=== PATIENT | male | born 1960 | race Caucasian/White ===

== ENCOUNTER 2017-06-23 13:34 | Emergency (ER) | payer BC ==
[2017-06-23] MEDS ORDERED: KETOROLAC 30 MG/ML 1 ML VIAL IVP STA (14:13)
[2017-06-23] MEDS ORDERED: RX INFO: IV CONTRAST WAS GIVEN 1 EACH MISC MISCELLANE PRN (14:13)
[2017-06-23] MEDS ORDERED: diphenhydrAMINE 50 MG/ML 1 ML VIAL IVP STA (14:13)
[2017-06-23] MEDS ORDERED: SODIUM CHLORIDE 0.9% 1,000 ML IV STA (14:13)
[2017-06-23] MEDS ORDERED: METOCLOPRAMIDE 5 MG/ML 2 ML VIAL IVP STA (14:13)
--- NOTE | 2017-06-23 14:28 | ED ---
Headache HPI - General Chief Complaint: Headache Stated Complaint: Headache Time Seen by Provider: 06/23/17 13:52 Source: RN notes reviewed, old records reviewed Mode of arrival: ambulatory Limitations: no limitations - History of Present Illness Initial Comments: 57-year-old male presents emergency Department with 3 days of a migraine-like headache. He reports no history of migraines or major headaches. He's been taking Motrin and Tylenol with no relief. Patient reports he went to his primary care doctor and encouraged him come directly here. He reports he has nausea but no specific vomiting. Denies any specific agent changes. He reports that his head feels very cloudy. He has a hard time thinking straight. He reports he feels agitated and is having a hard time sleeping. Patient reports he has history of high blood pressure. He does take his medication regularly. He denies any history of cancers. - Related Data Home Medications Medication Instructions Recorded Confirmed Lisinopril [Zestril] 10 mg PO DAILY 06/23/17 06/23/17 Previous Rx's Medication Instructions Recorded Butalb/APAP/Caff 50-325-40Mg 1 tab PO Q4H PRN #12 tablet 06/23/17 [Fioricet 50-325-40] Ondansetron Odt [Zofran Odt] 4 mg PO Q8HR PRN #12 tab 06/23/17 Allergies Allergy/AdvReac Type Severity Reaction Status Date / Time Fish Containing Products Allergy Unknown Verified 06/23/17 14:04 [Fish] Review of Systems ROS Statement: Those systems with pertinent positive or pertinent negative responses have been documented in the HPI. ROS Other: All systems not noted in ROS Statement are negative. Past Medical History Past Medical History: Hypertension History of Any Multi-Drug Resistant Organisms: None Reported Past Surgical History: Orthopedic Surgery Past Psychological History: No Psychological Hx Reported Smoking Status: Never smoker Past Alcohol Use History: Occasional Past Drug Use History: None Reported General Exam - General Exam Comments Initial Comments: This is an alert and oriented 57 year old male, no distress. Limitations: no limitations General appearance: alert, in no apparent distress Head exam: Present: atraumatic, normocephalic, normal inspection Eye exam: Present: normal appearance, PERRL, EOMI. Absent: scleral icterus, conjunctival injection, periorbital swelling ENT exam: Present: normal exam, mucous membranes moist Neck exam: Present: normal inspection. Absent: tenderness, meningismus, lymphadenopathy Respiratory exam: Present: normal lung sounds bilaterally. Absent: respiratory distress, wheezes, rales, rhonchi, stridor Cardiovascular Exam: Present: regular rate, normal rhythm, normal heart sounds. Absent: systolic murmur, diastolic murmur, rubs, gallop, clicks Extremities exam: Present: normal inspection, full ROM, normal capillary refill. Absent: tenderness, pedal edema, joint swelling, calf tenderness Back exam: Present: normal inspection Neurological exam: Present: alert, oriented X3, CN II-XII intact Expanded Patient oriented to: Present: person, place, time Speech: Present: fluid speech Cranial nerves: EOM's Intact: Normal, Facial Sensation: Normal Cerebellar function: Finger to Nose: Normal Upper motor neuron: Pronator Drift: Normal Sensory exam: Upper Extremity Light Touch: Normal, Lower Extremity Light Touch: Normal Motor strength exam: RUE: 5, LUE: 5, RLE: 5, LLE: 5 Eye Response: (4) open spontaneously Motor Response: (6) obeys commands Verbal Response: (5) oriented Roly Total: 15 Psychiatric exam: Present: normal affect, normal mood Skin exam: Present: warm, dry, intact, normal color. Absent: rash Course Vital Signs 06/23/17 06/23/17 13:34 17:45 Temperature 97.4 F L 97.5 F L Pulse Rate 65 60 Respiratory 15 18 Rate Blood Pressure 159/94 124/72 O2 Sat by Pulse 98 98 Oximetry - Reevaluation(s) Reevaluation #1: 06/23/17 16:51 57-year-old was reevaluated reports that his migraine is now a 2 out of 10 after the pain medications. He reports he is feeling somewhat better. He'll be given IM Imitrex prior to discharge. Discussed with him on the CT findings were reviewed and are normal. Medical Decision Making - Medical Decision Making This is a 57 year old male with CC of migraine headche for 3 days, history of hypertension. No history of migraines. Patient reports headache is worse with lights, noise, and standing. Patient has no neurological deficits and otherwise appears well. Vitals are stable. Given IV fluids nad labs obtained. Patient labs were reviewed and normal, given migraine cocktail and CT brain with and without contrast. No significant abnormalities noted on CT. Patient reports his headache has diminished to a 2/10. Given Sq Imitrex as well. Discussed all findings. Discussed following up with PCP and returning if symptoms worsen. Discusessd discharge with nausea and migraine medication. Patient understands treatment plan and will comply, return parameters discussed - Lab Data Result diagrams: 06/23/17 14:30 06/23/17 14:30 Lab Results 06/23/17 06/23/17 Range/Units 14:30 14:30 WBC 7.9 (3.8-10.6) k/uL RBC 4.80 (4.30-5.90) m/uL Hgb 14.3 (13.0-17.5) gm/dL Hct 43.7 (39.0-53.0) % MCV 91.1 (80.0-100.0) fL MCH 29.7 (25.0-35.0) pg MCHC 32.7 (31.0-37.0) g/dL RDW 14.1 (11.5-15.5) % Plt Count 158 (150-450) k/uL Neutrophils % 80 % Lymphocytes % 13 % Monocytes % 4 % Eosinophils % 1 % Basophils % 0 % Neutrophils # 6.3 (1.3-7.7) k/uL Lymphocytes # 1.0 (1.0-4.8) k/uL Monocytes # 0.3 (0-1.0) k/uL Eosinophils # 0.1 (0-0.7) k/uL Basophils # 0.0 (0-0.2) k/uL Sodium 141 (137-145) mmol/L Potassium 4.1 (3.5-5.1) mmol/L Chloride 102 (98-107) mmol/L Carbon Dioxide 29 (22-30) mmol/L Anion Gap 10 mmol/L BUN 16 (9-20) mg/dL Creatinine 1.00 (0.66-1.25) mg/dL Est GFR (MDRD) Af Amer >60 (>60 ml/min/1.73 sqM) Est GFR (MDRD) Non-Af >60 (>60 ml/min/1.73 sqM) Glucose 110 H (74-99) mg/dL Calcium 10.1 (8.4-10.2) mg/dL - Radiology Data Radiology results: report reviewed CT brain wi and without contrast are reviewed and negative for any acute process. Disposition Clinical Impression: Migraine Disposition: HOME SELF-CARE Condition: Good Instructions: Acute Headache (ED) Additional Instructions: Patient advised to take medications as directed. Follow-up with primary care provider. Return to the emergency department if any alarming signs or symptoms occur. Prescriptions: Butalb/APAP/Caff 50-325-40Mg [Fioricet 50-325-40] 1 tab PO Q4H PRN #12 tablet PRN Reason: Headache Ondansetron Odt [Zofran Odt] 4 mg PO Q8HR PRN #12 tab PRN Reason: Nausea Referrals: Jaya Allen MD [Primary Care Provider] - 1-2 days Time of Disposition: 16:52
[2017-06-23 14:51] LABS: Basophils % (A) 0 %; Eosinophils # (A) 0.1 k/uL (0-0.7); Eosinophils % (A) 1 %; HCT 43.7 % (39.0-53.0); HGB 14.3 gm/dL (13.0-17.5); Lymphocytes % (A) 13 %; MCH 29.7 pg (25.0-35.0); MCHC 32.7 g/dL (31.0-37.0); MCV 91.1 fL (80.0-100.0); Mean Platelet Volume 9.1; Monocytes # (A) 0.3 k/uL (0-1.0); Monocytes % (A) 4 %; Neutrophils # (A) 6.3 k/uL (1.3-7.7); Neutrophils % (A) 80 %; Platelet Count 158 k/uL (150-450); RDW 14.1 % (11.5-15.5); WBC 7.9 k/uL (3.8-10.6)
[2017-06-23 15:01] LABS: Anion Gap 10 mmol/L; Blood Urea Nitrogen 16 mg/dL (9-20); Calcium 10.1 mg/dL (8.4-10.2); Carbon Dioxide 29 mmol/L (22-30); Chloride 102 mmol/L (98-107); Glucose 110 mg/dL (74-99); Potassium 4.1 mmol/L (3.5-5.1); Sodium 141 mmol/L (137-145)
--- NOTE | 2017-06-23 16:23 | CT ---
EXAMINATION TYPE: CT brain wo/w con DATE OF EXAM: 06/23/2017 COMPARISON: NONE HISTORY: Migraine x [address] DLP: 2035.80 mGycm Automated Exposure Control for Dose Reduction was Utilized. TECHNIQUE: CT scan of the head is performed with IV contrast.,CT scan of the head is performed withou t and with without and with IV Contrast, patient injected with 100 mL of Omnipaque 300. FINDINGS: Incidental note is made of a megacisterna magna. Noncontrast images show no acute intracra nial hemorrhage or midline shift. The ventricles and sulci are within normal limits in size. No suspi cious extra-axial fluid collection is seen. Postcontrast images show no suspicious enhancing intrapar enchymal mass. The globes are intact and the visualized sinuses are clear. IMPRESSION: Negative contrast enhanced head CT exam. No evidence of acute intracranial infarct, midl ine shift or mass effect. No abnormal postcontrast enhancement.
[2017-06-23] MEDS ORDERED: SUMAtriptan SUCCINATE 6 MG/0.5 ML VIAL SQ STA (16:50)
[2017-06-23 18:20] VITALS: BP 124/72; PULSE 60; RESP 18; TEMP 97.5
== END 2017-06-23 18:20 | disposition home or self-care (01) ==
LOC: EC 13:34
DX: G43.909 Migraine, unspecified, not intractable, without status migrainosus (principal); R40.2142 Coma scale, eyes open, spontaneous, at arrival to emergency department; R40.2252 Coma scale, best verbal response, oriented, at arrival to emergency department; R40.2362 Coma scale, best motor response, obeys commands, at arrival to emergency department; I10 Essential (primary) hypertension; Z79.899 Other long term (current) drug therapy; Z91.013 Allergy to seafood
CPT/HCPCS: 99285; 96374; 96375 ×2; 96361; 96372; 36415; 80048; 85025; 70470; J3030; J1200; J2765; J1885; Q9967